=== PATIENT | male | born 1930 | race Caucasian/White ===

== ENCOUNTER 2016-09-23 13:20 | Emergency (ER) | payer OTHER ==
[~2016-09-23 13:20] MED LIST: AMARYL PO; AMARYL2 MG PO; ASPIRIN PO; ASPIRIN81 M1 PO; AUGMENTIN875 M1 PO; BENAZEPRIL PO; BP MED; CIPRO; COREG3.125 MG PO; LASIX20 MG PO; METAMUCIL1 PKT PO; METFORMIN; MOTION RELIEF25 MG PO; NITROSTAT0.4 MG SL; PLAVIX PO; SIMVASTATIN40 MG PO; ZOCOR PO; ZOFRAN PO
== END 2016-09-23 14:35 | disposition home or self-care (01) ==
LOC: SED 13:20
DX: S61.212A Laceration without foreign body of right middle finger without damage to nail, initial encounter (principal); Z23 Encounter for immunization; E11.9 Type 2 diabetes mellitus without complications; I10 Essential (primary) hypertension; Z79.899 Other long term (current) drug therapy; W29.3XXA Contact with powered garden and outdoor hand tools and machinery, initial encounter; Y92.009 Unspecified place in unspecified non-institutional (private) residence as the place of occurrence of the external cause
CPT/HCPCS: 12001; 90471; 90715; 99283

== ENCOUNTER 2016-09-26 13:37 | Observation (INO) | payer OTHER ==
--- NOTE | ~2016-09-26 | US83 ---
[facility] A Service of [facility] RADIOLOGY TEXT RESULTS PATIENT: MURTAZA BARROSO LOCATION: [facility] 567-01 : 31 UNIT #: [id number] AGE: [address]: Mani Alexander MD SEX: M ORDER DR: [id number] [facility] [address] [place], [place] [address] [id number] MR#: [id number] #: [id number] NAME: MURTAZA BARROSO : 1930 SEX: M STUDY DATE/TIME: 09/28/2016 10:32 UNIT: [facility] ROOM: [facility] STUDY DESCRIPTION: US LE [employer] Attending Physician: Mani Alexander M.D. Referring Physician: Serafin Perez M.D. Ordering Physician: Mani Alexander M.D. Primary Care Physician: Serafin Perez M.D. MEDICAL IMAGING REPORT This report is preliminary unless electronic signature is present EXAM Ultrasound of the aorta and iliac arteries, 09/28/2016. 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 FINDINGS High-resolution B-mode imaging and color flow Doppler analysis was performed of the distal abdominal aorta and iliac arteries in longitudinal and transverse views. The distal abdominal aorta measures 2.15 x 1.64 cm in a transverse view. The right common iliac artery measures 1.21 x 1.22 cm in a transverse view. The left common iliac artery measures 1.13 x 1.24 cm in a transverse view. There is no focal elevation of Doppler velocities in the aorta or iliac arteries to suggest significant stenosis. IMPRESSION Normal examination of the distal aorta and iliac arteries. No aneurysm is demonstrated. Dictated by... Stewart Arellano M.D. THIS IS AN ELECTRONICALLY VERIFIED REPORT Stewart Arellano M.D. at 09/29/2016 7:28 AM Nereida TD: 09/28/2016 13:05 JOB #: [id number] [facility] A Service of [facility] RADIOLOGY TEXT RESULTS PATIENT: MRUTAZA BARROSO LOCATION: [facility] 567-01 : 31 UNIT #: [id number] AGE: [address]: Mani Alexander MD SEX: M ORDER DR: MEDICAL IMAGING REPORT Page 1 of 1 COPY
--- NOTE | ~2016-09-26 | EKG ---
PATIENT: MURTAZA BARROSO UNIT #: [id number] Ventricular Rate: 62 BPM Atrial Rate: 62 BPM P-R Interval: 200 ms QRS Duration: 98 ms Q-T Interval: 440 ms QTC Calculation(Bezet): 446 ms P [place]: 34 degrees Calculated R [place]: -18 degrees Calculated T [place]: 28 degrees Diagnosis Line: Normal sinus rhythm Diagnosis Line: Nonspecific ST abnormality Diagnosis Line: Abnormal ECG Diagnosis Line: When compared with ECG of 30-JUL-2014 20:05, Diagnosis Line: No significant change was found Diagnosis Line: Confirmed by ROSALEE SLADE MD ([id number]) on 09/27/2016 Diagnosis Line: 10:27:26 PM INTERPRETING MD: YANY MCMAHON
--- NOTE | ~2016-09-26 | CO ---
Unit #: [id number] #: [id number] Patient: MURTAZA BARROSO [id number] [address] [place], [place] [address] [id number] I MR#: [id number] NAME: MURTAZA BARROSO ROOM: 567 Age: 86 Sex: M Admission Date: 09/26/2016 : 1930 Attending Physician: Mani Alexander M.D. Primary Care Physician: Serafin Perez M.D. Requesting Physician: Mani Alexander M.D. CONSULTATION REPORT REASON FOR CONSULTATION Evaluate the patient for percutaneous aortic valve replacement. HISTORY OF PRESENT ILLNESS The patient is an 86-year-old gentleman who has prior history of coronary disease. He was admitted yesterday because he felt fatigued and lightheaded. He had an echo done showing severe aortic stenosis. Earlier today, his cardiac catheterization was done which shows his circumflex stent is patent. He has nondominant RCA which has tight stenosis, normal LV size and function but, again, has severe aortic stenosis. Right now he denies any symptoms. He denies orthopnea, PND, or palpitations. PAST MEDICAL HISTORY 1. CAD, status post stenting of left circumflex. 2. History of hypertension. 3. High cholesterol. 4. Type 2 diabetes. 5. History of prostate cancer. PAST SURGICAL HISTORY 1. History of hemorrhoidectomy. 2. Cholecystectomy. 3. Stent placement in prostate. 4. Left thumb amputation. HOME MEDICATIONS 1. Plavix 75 mg daily. 2. Amaryl 4 mg q.a.m. 3. Amaryl 2 mg q.p.m. 4. Carvedilol 3.125 mg daily. 5. Lasix 20 mg daily. 6. Simvastatin 40 mg daily. 7. Keflex 500 mg q.6 h. 8. Lotensin 5 mg t.i.d. ALLERGIES None. SOCIAL HISTORY He is , retired. Does not smoke, does not drink. FAMILY HISTORY Unremarkable. Unit #: [id number] #: [id number] Patient: MURTAZA BARROSO REVIEW OF SYSTEMS Patient denies any weight gain or weight loss. He definitely has a lot of fatigue. He definitely feels lightheaded. He has no angina, no palpitations. Gets short of breath with exertion. Physically still very active. Denies any edema or other neurological deficit. All of the systems reviewed and they are negative. PHYSICAL EXAMINATION VITAL SIGNS: Heart rate 60, blood pressure 110/60, respiratory rate 16. GENERAL: He is lying comfortably in bed, not in distress. HEENT: Eyes: Conjunctivae normal. Pupils round and reactive. Oral mucosa is moist. No central cyanosis. NECK: No thyromegaly. Carotid upstrokes are delayed. JVD is not elevated. LUNGS: He is breathing normal. Clear on auscultation. HEART: No parasternal lift. S1 normally heard, aortic component second heart sound is diminished. He has his ejection systolic murmur late peaking but more pronounced around apex call. , called ABDOMEN: Soft. Liver and spleen are not enlarged. Abdominal aorta not palpable. RECTAL: Guaiac not indicated. EXTREMITIES: No pedal edema. 2+ bilateral femoral and dorsalis pedis pulses. Digits no clubbing. SKIN: No rash or abnormal pigmentation. NEUROLOGIC: He is oriented x3. Mood is normal. Muscle tone in all extremities normal. DIAGNOSTIC STUDIES CARDIOVASCULAR: EKG showing sinus rhythm with nonspecific ST and T changes. ASSESSMENT AND PLAN 1. Aortic stenosis seems to be very severe to critical and he is very symptomatic. 2. History of CAD with status post stenting of left circumflex which is patent. He has a single vessel disease but that is in a small vessel. 3. History of hypertension, diabetes, and hypercholesterolemia. PLAN 1. The patient is a good candidate for percutaneous aortic valve replacement. He will need a CT of his chest and abdomen with 3D reconstruction. That obviously is done at [facility]. I will make all of these arrangements. 2. From my standpoint, the patient can be discharged home today. 3. CT of the chest will be done sometime next week. 4. After that, we will be able to scheduled for the procedure. Unit #: [id number] #: [id number] Patient: MURTAZA BARROSO Dictated by... Vinicius Pulliam/paola TD: 09/27/2016 22:51 JOB #: [id number] CONSULTATION REPORT Page 1 of 1 X Camron Soto MD CONSULTATION REPORT
--- NOTE | ~2016-09-26 | HP ---
Unit #: [id number] #: [id number] Patient: MURTAZA BARROSO [id number] [facility]. [place], [place] [address] [id number] I MR#: [id number] NAME: MURTAZA BARROSO ROOM: 567 Age: 86 Sex: M Admission Date: 09/26/2016 : 1930 Attending Physician: Mani Alexander M.D. Referring Physician: Serafin Perez M.D. Primary Care Physician: Serafin Perez M.D. HISTORY AND PHYSICAL HISTORY OF PRESENT ILLNESS This is an 86-year-old, white male who is known to Dr. Alexander to have a history of coronary artery disease where he underwent angioplasty and stent placement to the circumflex artery in 2012. He is known to have severe aortic stenosis and has been asymptomatic. He was seen in the office on 09/19/2016 and he was doing well. This morning, the patient awakened feeling well. He went outside to mown the lawn, but, before he got started, he had to stop because of fatigue and dyspnea. He was scheduled for cataract extraction this afternoon and while in the precipitator supervisor's office waiting, he became lightheaded and felt as if he could pass out. He came to the emergency room for evaluation. He states he took his diabetic medicines this morning, but ate breakfast and lunch. In the emergency room, his blood glucose was as low as 79. He was treated with orange juice. His electrocardiogram showed no acute ischemic changes or arrhythmias. He denied any symptoms of angina. PAST MEDICAL HISTORY 1. Cardiac catheterization, 10/04/2012, by Dr. Alexander that showed mid LAD 50% stenosis. Proximal circumflex artery 90%. Right coronary artery had mild disease. Left main normal. 2. Two-dimensional echocardiogram, 06/09/2015, showed an ejection fraction equal to 50% to 55% with trace mitral regurgitation and mild tricuspid regurgitation. Severe aortic stenosis. 3. Status post PCI and stent placement to the proximal circumflex artery 10/04/2012. 4. Hypertension. 5. Hyperlipidemia. 6. Diabetes mellitus type 2. 7. Nonsmoker. 8. Prostate cancer. PAST SURGICAL HISTORY 1. Hemorrhoidectomy. 2. Cholecystectomy. 3. Prostate seed implant. 4. Left thumb amputation. 5. Left wrist repair of fracture. SOCIAL HISTORY The patient is and retired. He has never smoked. He denies illicit drug and alcohol use. FAMILY HISTORY Noncontributory. Unit #: [id number] #: [id number] Patient: MURTAZA BARROSO ALLERGIES No known drug allergies. HOME MEDICATIONS 1. Plavix 75 mg daily. 2. Amaryl 4 mg q.a.m. and 2 mg q.p.m. 3. Carvedilol 3.125 mg daily. 4. Furosemide 20 mg daily. 5. Simvastatin 40 mg daily. 6. Keflex 500 mg q.6 hours. 7. Lotensin 5 mg t.i.d. REVIEW OF SYSTEMS CONSTITUTIONAL: Negative for fever or chills. Reports no weight gain or weight loss. Had recent fatigue. HEENT: No headache or hearing or visual changes. Positive for lightheadedness. CARDIOVASCULAR: Has no symptoms of angina. Denies palpitations. No paroxysmal nocturnal dyspnea or orthopnea. Reports near syncope. RESPIRATORY: Has dyspnea on exertion. No cough or hemoptysis. GASTROINTESTINAL: No abdominal pain, nausea, or vomiting. No constipation or melena. EXTREMITIES: Negative for lower extremity edema. PHYSICAL EXAMINATION VITAL SIGNS: Blood pressure 131/104 heart rate is 61, and temperature 97.8. GENERAL: This is a very pleasant, 86-year-old, well developed, elderly, white male who is in no acute distress. NEUROLOGICAL: He is awake, alert, and oriented. There are no focal weaknesses. NECK: Trachea is midline. No thyromegaly or lymphadenopathy. No jugular venous distention. HEART: S1 and S2 heart sounds are normal. No murmurs, no rubs, and no clicks. Regular rate and rhythm. LUNGS: Clear to auscultation. There are no rales, rhonchi, or wheezes. ABDOMEN: Soft and nontender. Good bowel sounds are present. EXTREMITIES: Without leg edema. SKIN: Warm and dry. DIAGNOSTIC STUDIES LABORATORY: Hemoglobin 13.5, hematocrit 46.7, platelet count 222, and white count 5.4. Sodium 134, potassium 3.8, BUN 10, creatinine 0.7, and glucose 88. Troponin less than 0.05. IMAGING: Chest x-ray shows no active disease. CARDIOVASCULAR: Electrocardiogram: Normal sinus rhythm. Rate of 62 beats per minute with Q waves noted in III and aVF. Nonspecific ST wave abnormality. IMPRESSION 1. Near syncope secondary to severe aortic stenosis. 2. Severe aortic stenosis. 3. Hypoglycemia. 4. Coronary artery disease, status post PCI with drug-eluting stent to the circumflex artery in 2012. LAD not dilated. Unit #: [id number] #: [id number] Patient: MURTAZA BARROSO 5. Hypertension. 6. Hyperlipidemia. 7. Diabetes mellitus type 2. PLAN 1. Patient's near syncope is most likely (1) to severe aortic stenosis, which he is now symptomatic. Will proceed with right and left heart catheterization in preparation for TAVR. This has been discussed with the patient in detail. 2. Trend troponin to rule out myocardial infarction. 3. No arrhythmias have been noted. 4. Blood glucose has improved. 5. Further recommendations pending results of the cardiac catheterization. Dictated by Krystian Garrison A.P.R.N. for Vinicius Rae/navin TD: 09/27/2016 06:06 JOB #: [id number] HISTORY AND PHYSICAL Page 1 of 1 X Krystian Garrison APRN X HISTORY AND PHYSICAL
--- NOTE | ~2016-09-26 | DS ---
Unit #: [id number] #: [id number] Patient: MURTAZA BARROSO [id number] [facility]. [place], [place] [address] [id number] I MR#: [id number] NAME: MURTAZA BARROSO ROOM: 567 Age: 86 Sex: M Admission Date: 09/26/2016 : 1930 Discharge Date: 09/28/2016 Attending Physician: Mani Alexander M.D. Referring Physician: Serafin Perez M.D. Primary Care Physician: Serafin Perez M.D. DISCHARGE SUMMARY HOSPITAL COURSE An 86-year-old white male with history of coronary artery disease, previous PCI and stent insertion on proximal and mid circumflex coronary artery in 2012 and a diagnosis of severe aortic stenosis, was admitted to the hospital because of sudden onset of severe fatigue, dyspnea, and lightheadedness. He was scheduled for cataract extraction on the day of admission and while in the facs teacher's office became severely lightheaded and felt as if he was going to pass out. Details are available in H and P. He is known to have hypertension, hyperlipidemia, type 2 diabetes mellitus, and has been treated for prostate cancer in the past. The patient was admitted to the hospital, examination reveal normal sinus rhythm, diminished carotid upstrokes bilaterally. Cardiac exam showed apical impulse to be normal, both heart sounds are normal, grade 2/6 systolic ejection murmur was noted at the left upper sternal border and the apex. No diastolic murmurs are audible. Abdominal examination, chest examination, and LANGUAGE [employer] LITERATURE DIVISION CHAIR examination are normal. ECG had shown normal sinus rhythm, left anterior hemiblock, and nonspecific ST-segment changes. Echocardiogram done a week or two before this admission had shown normal left ventricular systolic function, moderate to severely calcified three-cusp aortic valve and severe aortic stenosis with aortic valve area of 0.7 cm2. The patient was admitted to a telemetry bed, no cardiac arrhythmias were detected. He was advised to consider a cardiac catheterization to which he agreed. 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 The patient also was noted to have aortic gradient of 34 mm peak with calculated valve area of 0.7 cm2. He was advised to consider aortic valve replacement and was referred to Dr. Soto for possible TAVR. The patient was evaluated by Dr. Stoo, who was agreed with this proposed treatment. A Doppler study on the abdominal aorta and the iliac vessels showed no evidence of aneurysm in the left iliac artery that was suspected at that time of cardiac catheterization. The patient continues to stay asymptomatic, he has not had any chest pains since admission. Denies any recurrence of syncope, lightheadedness, shortness of breath. Vital signs have remained stable. He will be sent home on the following medicines: Carvedilol 3.125 b.i.d., Keflex 500 mg q.6 hours, furosemide 20 mg daily, simvastatin Unit #: [id number] #: [id number] Patient: DHARMESH,MURTAZA 40 mg daily, benazepril is cut down to 5 mg daily, Plavix 75 mg daily, glimepiride tablet 4 mg before breakfast and 2 mg at dinner. The patient will undergo CT scan of the chest for evaluation of aortic root size. Following the CT scan, Dr. Soto will arrange the TAVR procedure for the patient. FINAL DIAGNOSES 1. Severe aortic stenosis. 2. Patent stent proximal and mid circumflex coronary artery. 3. Diabetes mellitus. 4. Hypertensive heart disease. Dictated by... Vinicius Rae/akilah TD: 09/29/2016 03:01 JOB #: [id number] DISCHARGE SUMMARY Page 1 of 1 X Mani Alexander MD X DISCHARGE SUMMARY
--- NOTE | ~2016-09-26 | EKG ---
PATIENT: MURTAZA BARROSO UNIT #: [id number] Ventricular Rate: 64 BPM Atrial Rate: 64 BPM P-R Interval: 188 ms QRS Duration: 104 ms Q-T Interval: 448 ms QTC Calculation(Bezet): 462 ms P [place]: 43 degrees Calculated R [place]: -37 degrees Calculated T [place]: 27 degrees Diagnosis Line: Normal sinus rhythm Diagnosis Line: Left axis deviation Diagnosis Line: Abnormal ECG Diagnosis Line: When compared with ECG of 26-SEP-2016 13:14, Diagnosis Line: (unconfirmed) Diagnosis Line: No significant change was found Diagnosis Line: Confirmed by ROSALEE SLADE MD ([id number]) on 09/27/2016 Diagnosis Line: 10:32:53 PM INTERPRETING MD: YANY MCMAHON
--- NOTE | ~2016-09-26 | EKG ---
PATIENT: MURTAZA BARROSO UNIT #: [id number] Ventricular Rate: 64 BPM Atrial Rate: 64 BPM P-R Interval: 188 ms QRS Duration: 104 ms Q-T Interval: 448 ms QTC Calculation(Bezet): 462 ms P [place]: 43 degrees Calculated R [place]: -37 degrees Calculated T [place]: 27 degrees Diagnosis Line: Normal sinus rhythm Diagnosis Line: Left axis deviation Diagnosis Line: Abnormal ECG Diagnosis Line: When compared with ECG of 26-SEP-2016 13:14, Diagnosis Line: (unconfirmed) Diagnosis Line: No significant change was found Diagnosis Line: Confirmed by ROSALEE SLADE MD ([id number]) on 09/27/2016 Diagnosis Line: 10:32:46 PM INTERPRETING MD: YANY MCMAHON
--- NOTE | ~2016-09-26 | CT71 ---
[facility] A Service of [facility] RADIOLOGY TEXT RESULTS PATIENT: MURTAZA BARROSO LOCATION: [facility] 5612-31 : 31 UNIT #: [id number] AGE: [address]: Mani Alexander MD SEX: M ORDER DR: [id number] [facility] [address] [facility] [place], [place] [address] [id number] I MR#: [id number] Acc #: [id number] NAME: MURTAZA BARROSO : 1930 SEX: M STUDY DATE/TIME: 09/26/2016 16:07 UNIT: [facility] ROOM: [facility] STUDY DESCRIPTION: CT Head Wo Contrast Attending Physician: Mani Alexander M.D. Referring Physician: Serafin Perez M.D. Ordering Physician: Artie De Paz D.O. Primary Care Physician: Serafin Perez M.D. MEDICAL IMAGING REPORT This report is preliminary unless electronic signature is present EXAM CT scan of the head without contrast, 09/26/2016 INDICATION Weakness and lightheadedness starting this morning. TECHNIQUE This CT exam was performed with one or more of the following radiation dose reduction techniques: automatic exposure control, adjustment of mA and/or kV according to patient size, and iterative reconstruction. FINDINGS Axial noncontrast images were obtained from the skull base to the vertex. Ventricular size and configuration are normal. There is no evidence of acute infarct or hemorrhage. There are no extra-axial fluid collections. No mass lesion or mass effect is seen. There are no skull fractures. IMPRESSION Normal noncontrast head CT. Dictated by... Rafael Jones M.D. THIS IS AN ELECTRONICALLY VERIFIED REPORT Rafael Jones M.D. at 09/27/2016 7:14 AM NEERU/kaylene TD: 09/27/2016 00:12 JOB #: [id number] [facility] A Service of [facility] RADIOLOGY TEXT RESULTS PATIENT: MURTAZA BARROSO LOCATION: [facility] : 31 UNIT #: [id number] AGE: [address]: Mani Alexander MD SEX: M ORDER DR: MEDICAL IMAGING REPORT Page 1 of 1 COPY
--- NOTE | ~2016-09-26 | CR72 ---
[facility] A Service of [facility] RADIOLOGY TEXT RESULTS PATIENT: MURTAZA BARROSO LOCATION: [facility] : 31 UNIT #: [id number] AGE: [address]: Artie De Paz DO SEX: M ORDER DR: [id number] [facility] [address] [place], [place] [address] [id number] MR#: [id number] Acc #: [id number] NAME: MURTAZA BARROSO : 1930 SEX: M STUDY DATE/TIME: 09/26/2016 13:23 UNIT: [facility] ROOM: STUDY DESCRIPTION: CR Chest Single View Portable Attending Physician: Artie De Paz D.O. Referring Physician: Serafin Perez M.D. Ordering Physician: Artie De Paz D.O. Primary Care Physician: Searfin Perez M.D. MEDICAL IMAGING REPORT This report is preliminary unless electronic signature is present EXAM Portable chest 09/26/2016 INDICATIONS Shortness of air and lightheadedness today. History of coronary artery disease and prostate cancer. COMPARISON STUDIES AP portable chest compared with 10/10/2014 FINDINGS Cardiac and mediastinal contours are normal. There is chronic elevation of the right hemidiaphragm. Lungs are clear. Left side coronary stent is present. There is atherosclerotic disease in the aorta. Postoperative changes are noted in the right shoulder. There is no pneumothorax. IMPRESSION No active disease. Dictated by... Isacc Vasquez Jr., M.D. THIS IS AN ELECTRONICALLY VERIFIED REPORT Isacc Vasquez Jr., M.D. at 09/26/2016 4:49 PM KARLA/matthew TD: 09/26/2016 15:29 JOB #: [id number] MEDICAL IMAGING REPORT Page 1 of 1 COPY
[2016-09-26 13:17] LABS: POC - CKMB 1.9 ng/mL (0.0-7.9); POC - TROPONIN <0.05 ng/mL (<=0.05)
[2016-09-26 13:30] LABS: BASOPHIL% 0.7 % (0-2.5); EOSINOPHIL# 0.2 X10e3 (0-0.7); EOSINOPHIL% 3.5 % (0.0-7.0); HEMATOCRIT 40.4 % (38.0-50.0); HEMOGLOBIN 13.5 gm/dL (13.0-16.0); LYMPHOCYTE# 1.1 X10e3 (1.0-3.5); LYMPHOCYTE% 20.6 % (17.0-45.0); MEAN CELL VOLUME 89.7 FL (83-96); MEAN CORPUSCULAR HGB CONC 33.5 g/dL (30-36); MEAN PLATELET VOLUME 7.3 FL (6.5-11.5); MONOCYTE# 0.9 X10e3 (0-1.0); MONOCYTE% 15.8 % (3.0-12.0); NEUTROPHIL# 3.2 X10e3 (1.5-7.1); NEUTROPHIL% 59.4 % (40-75); PLATELET COUNT 222 X10e3 (140-420); RED CELL DISTRIBUTION WIDTH 13.2 % (11.0-15.5); WHITE BLOOD COUNT 5.4 X10e3 (4.0-10.5)
[2016-09-26 13:34] LABS: DIFF IND NO
[2016-09-26 13:56] LABS: PARTIAL THROMBOPLASTIN TIME 26.1 SECONDS (23.5-31.3); PROTHROMBIN TIME (PATIENT) 10.4 SECONDS (9.6-11.5)
[2016-09-26 14:03] LABS: BILIRUBIN, DIRECT 0.1 mg/dL (0.0-0.2); BILIRUBIN,INDIRECT 0.2 mg/dL (0.0-0.9); BILIRUBIN,TOTAL 0.3 mg/dL (0.2-2.0); BUN/CREATININE RATIO 14.28; CALCIUM SERUM 8.8 mg/dL (8.4-10.2); CREATININE SERUM 0.7 mg/dL (0.6-1.4); GLOM FILT RATE Estimated 86.1 mL/min (>60); POTASSIUM 3.8 mmol/L (3.5-5.1); PROTEIN TOTAL SERUM 6.9 g/dL (6.0-8.3)
[2016-09-26 14:57] LABS: URINE SOURCE CLEAN CATCH
[2016-09-26 14:58] LABS: POC - CKMB 1.8 ng/mL (0.0-7.9); POC - TROPONIN <0.05 ng/mL (<=0.05)
[2016-09-26 15:08] LABS: URINE APPEARANCE CLEAR; URINE BILIRUBIN NEG (NEG); URINE BLOOD NEG (NEG); URINE COLOR YELLOW; URINE GLUCOSE NEG (NEG); URINE KETONE NEG (NEG); URINE LEUKOCYTE ESTERASE NEG (NEG); URINE NITRATE NEG (NEG); URINE PROTEIN NEG (NEG); URINE SPECIFIC GRAVITY 1.007 (1.003-1.035); URINE UROBILINOGEN 0.2 MG/DL (NEG)
[2016-09-26 15:15] LABS: CULTURE INDICATED? NO
[2016-09-26] MEDS ORDERED: CLOPIDOGREL75 MG PO (16:30)
[2016-09-26] MEDS ORDERED: AMARYL2 MG PO (16:31)
[2016-09-26] MEDS ORDERED: LASIX20 MG PO (16:31)
[2016-09-26] MEDS ORDERED: LOTENSIN PO ×2 (16:31→16:40)
[2016-09-26] MEDS ORDERED: COREG3.125 MG PO (16:31)
[2016-09-26] MEDS ORDERED: ZOCOR20 MG PO (16:31)
[2016-09-26] MEDS ORDERED: KEFLEX500 M1 PO (16:32)
[2016-09-27 03:01] LABS: %MB 2.8 % (0.0-4.0); MB 3.4 ng/ml
[2016-09-27 05:18] LABS: HEMATOCRIT 38.4 % (38.0-50.0); MEAN CELL VOLUME 88.9 FL (83-96); MEAN CORPUSCULAR HEMOGLOBIN 30.1 PG (28-34); MEAN CORPUSCULAR HGB CONC 33.9 g/dL (30-36); MEAN PLATELET VOLUME 6.8 FL (6.5-11.5); RED BLOOD COUNT 4.32 X10e (3.90-5.60); RED CELL DISTRIBUTION WIDTH 12.9 % (11.0-15.5); WHITE BLOOD COUNT 5.4 X10e3 (4.0-10.5)
[2016-09-27 06:06] LABS: PARTIAL THROMBOPLASTIN TIME 27.9 SECONDS (23.5-31.3); PROTHROMBIN TIME (PATIENT) 10.5 SECONDS (9.6-11.5)
[2016-09-27 07:04] LABS: BUN/CREATININE RATIO 12.5; CALCIUM SERUM 8.6 mg/dL (8.4-10.2); CREATININE SERUM 0.8 mg/dL (0.6-1.4); GLOM FILT RATE Estimated 81.5 mL/min (>60); POTASSIUM 4.3 mmol/L (3.5-5.1)
[2016-09-28] MEDS ORDERED: BENAZEPRIL PO (13:50)
== END 2016-09-28 14:47 | disposition home or self-care (01) ==
LOC: CFTX 13:37 → CEDOF 17:30 → C5C 20:37
PROVIDERS: Emergency Medicine; Internal Medicine Cardiovascular Disease
DX: I08.0 Rheumatic disorders of both mitral and aortic valves (principal); R55 Syncope and collapse; I25.10 Atherosclerotic heart disease of native coronary artery without angina pectoris; Z95.5 Presence of coronary angioplasty implant and graft; E11.9 Type 2 diabetes mellitus without complications; Z79.84 Long term (current) use of oral hypoglycemic drugs; I10 Essential (primary) hypertension; E78.5 Hyperlipidemia, unspecified; E78.00 Pure hypercholesterolemia, unspecified; Z79.899 Other long term (current) drug therapy; Z79.02 Long term (current) use of antithrombotics/antiplatelets; Z85.46 Personal history of malignant neoplasm of prostate; Z98.890 Other specified postprocedural states; Z90.49 Acquired absence of other specified parts of digestive tract
CPT/HCPCS: 36415; 70450; 71010; 80048; 80076; 81003; 82550; 82553; 82810; 82947; 84443; 84484; 85025; 85027; 85610; 85730; 93005; 93926; 96372; 99285; C1769; C1887; C1894; G0378; J1644; J1650; J1815; J2250; J3010